=== PATIENT | male | born 1995 | race Caucasian/White ===

== ENCOUNTER 2017-02-08 14:08 | Outpatient (CLI) | payer OTHER ==
[2012-10-29 13:42] VITALS: BP 120/68
== END 2017-02-08 14:10 ==
LOC: LABRHC 14:08
PROVIDERS: ATTEND Physician Assistant
DX: Z20.2 Contact with and (suspected) exposure to infections with a predominantly sexual mode of transmission (principal); Z71.1 Person with feared health complaint in whom no diagnosis is made
CPT/HCPCS: 87491; 87591